=== PATIENT | male | born 1975 | race Caucasian/White ===

== ENCOUNTER 2022-11-14 22:01 | Emergency (ER) | payer OTHER ==
[~2022-11-14] VITALS: Ht 162.6 cm; Wt 104.3 kg
[2022-11-14] MEDS ORDERED: ACID REDUCER20 M1 (22:25)
[2022-11-14] MEDS ORDERED: ELIQUIS2.5 MG (22:25)
[2022-11-14] MEDS ORDERED: CRESTOR5 MG (22:26)
== END 2022-11-15 00:46 | disposition home or self-care (01) ==
LOC: ER 22:01
DX: M25.571 Pain in right ankle and joints of right foot (principal); Z88.8 Allergy status to other drugs, medicaments and biological substances